=== PATIENT | male | born 2000 | race Caucasian/White ===

== ENCOUNTER 2025-06-06 13:37 | Emergency (ER) | payer OTHER ==
[~2025-06-06] VITALS: Ht 172.7 cm; Wt 63.0 kg
[2025-06-06 13:47] VITALS: TEMP 98.6
[2025-06-06] MEDS ORDERED: IBUP-1492 PO (15:28)
[2025-06-06] MEDS ORDERED: AMOX1TAB15 PO (15:28)
[2025-06-06] MEDS: BACITRACIN 0.9 GM PACKET OINTMENT TP ONE (15:44)
[2025-06-06] MEDS ORDERED: BACI28.410 TP (15:56)
[2025-06-06 16:01] VITALS: BP 116/65; PULSE 72; RESP 18; O2SAT 99
== END 2025-06-06 16:04 | disposition home or self-care (01) ==
LOC: EMS 13:37
DX: S61.203A Unspecified open wound of left middle finger without damage to nail, initial encounter (principal); S61.205A Unspecified open wound of left ring finger without damage to nail, initial encounter; X58.XXXA Exposure to other specified factors, initial encounter; Y93.89 Activity, other specified; Y92.89 Other specified places as the place of occurrence of the external cause; Y99.8 Other external cause status
CPT/HCPCS: 99283